=== PATIENT | male | born 1945 | race Caucasian/White ===

== ENCOUNTER 2024-03-30 16:33 | Emergency (ER) | payer OTHER ==
[2024-03-30 18:29] LABS: #Basophils 0.02 10x3/uL (0.0-0.2); #Eosinphils 0.52 10x3/uL (0.0-0.5); #Monocytes 0.85 10x3/uL (0.0-1.1); #Neutrophils 11.49 10x3/uL (1.5-8.4); %Basophils 0.1 % (0.0-2.0); %Eosinophils 3.6 % (0.0-6.0); %Monocytes 5.9 % (0.0-10.0); %Neutrophils 79.1 % (40.0-75.0); Hematocrit 31.2 % (38.8-50.0); Hemoglobin 10.4 g/dL (13.5-17.5); Mean Corpuscular HGB CONC 33.3 g/dL (32.0-36.0); Mean Corpuscular Hemoglobin 26.3 pg (27.0-33.0); Mean Corpuscular Volume 78.8 fL (81.2-95.1); Mean Platelet Volume 9.6 fL (7.4-10.4); PTT 23.4 sec (22.0-33.0); Platelet Count 346 10x3/uL (150-450); Prothrombin Time 10.8 sec (9.5-12.1); RBC Distribution Width 14.5 % (11.5-14.5); Red Blood Cell (RBC) Count 3.96 10x6/uL (4.32-5.72); White Blood Cell (WBC) Count 14.5 10x3/uL (3.5-10.5)
[2024-03-30 18:32] LABS: ALT (SGPT) 19 U/L (8-55); AST (SGOT) 21 U/L (5-34); Albumin 3.3 g/dL (3.4-4.8); Alkaline Phosphatase 81 U/L (40-110); Anion Gap 12 mmol/L (10-20); BUN (Urea Nitrogen) 12 mg/dL (8.4-25.7); Bilirubin, Total 0.4 mg/dL (0.2-1.2); Calc. Creatinine Clearance 0 mL/min (70-130); Calcium 8.2 mg/dL (7.8-10.44); Carbon Dioxide 21 mmol/L (23-31); Chloride 113 mmol/L (98-107); Estimated GFR 78; Globulin 2.4 g/dL (2.4-3.5); Glucose 99 mg/dL (83-110); Potassium 4.6 mmol/L (3.5-5.1); Protein, Total 5.7 g/dL (5.8-8.1); Sodium 141 mmol/L (136-145)
[2024-03-30 18:37] LABS: Troponin I 0.011 ng/mL (< 0.028)
== END 2024-03-30 18:55 ==
LOC: EEVIPCON 16:33 → CSHERS 16:33
DX: K92.2 Gastrointestinal hemorrhage, unspecified (principal); R07.9 Chest pain, unspecified
CPT/HCPCS: 36415; 80053; 82274; 83605; 84484; 85025; 85610; 85730; 86850; 86900; 86901; 93005

== ENCOUNTER 2024-04-11 19:55 | Emergency (ER) | payer OTHER ==
[~2024-04-11 19:55] MED LIST: Iopamidol 300 61% 100 ML VIAL FS ONE
[2024-04-11] MEDS ORDERED: Ondansetron PF 4 MG/2 ML Vial ONE ×2 (20:27→22:34)
[2024-04-11] MEDS ORDERED: Morphine 2 MG/ML VIAL ONE (20:28)
[2024-04-11 20:37] LABS: #Basophils 0.02 10x3/uL (0.0-0.2); #Eosinphils 0.12 10x3/uL (0.0-0.5); #Monocytes 0.95 10x3/uL (0.0-1.1); #Neutrophils 10.73 10x3/uL (1.5-8.4); %Basophils 0.2 % (0.0-2.0); %Eosinophils 0.9 % (0.0-6.0); %Monocytes 7.3 % (0.0-10.0); %Neutrophils 82.3 % (40.0-75.0); Hematocrit 30.4 % (38.8-50.0); Hemoglobin 10.2 g/dL (13.5-17.5); Mean Corpuscular HGB CONC 33.6 g/dL (32.0-36.0); Mean Corpuscular Hemoglobin 25.9 pg (27.0-33.0); Mean Corpuscular Volume 77.2 fL (81.2-95.1); Mean Platelet Volume 9.4 fL (7.4-10.4); Platelet Count 373 10x3/uL (150-450); RBC Distribution Width 15.7 % (11.5-14.5); Red Blood Cell (RBC) Count 3.94 10x6/uL (4.32-5.72)
[2024-04-11 21:06] LABS: ALT (SGPT) 27 U/L (8-55); AST (SGOT) 21 U/L (5-34); Albumin 3.9 g/dL (3.4-4.8); Alkaline Phosphatase 85 U/L (40-110); Anion Gap 15 mmol/L (10-20); BUN (Urea Nitrogen) 13 mg/dL (8.4-25.7); Bilirubin, Total 0.3 mg/dL (0.2-1.2); Calc. Creatinine Clearance 0 mL/min (70-130); Carbon Dioxide 20 mmol/L (23-31); Chloride 108 mmol/L (98-107); Estimated GFR 76; Globulin 3.1 g/dL (2.4-3.5); Glucose 116 mg/dL (83-110); Lipase 27 U/L (8-78); Potassium 3.7 mmol/L (3.5-5.1); Sodium 139 mmol/L (136-145)
[2024-04-11 21:12] LABS: Troponin I Less than 0.010 ng/mL (< 0.028)
[2024-04-11 22:25] LABS: Bilirubin Neg (Negative); Blood, Urine Negative (Negative); Clarity Clear (Clear); Glucose, Urine (Dipstick) Normal (Negative); Ketone, Urine Negative (Negative); Leukocyte Negative (Negative); Nitrite Negative (Negative); Protein, Urine (Dipstick) 15 mg/dl (Neg-Trace); Urobilinogen Normal mg/dL (Less than 2)
[2024-04-11 22:32] LABS: Bacteria/HPF None Seen HPF (None Seen); CAUTI Indications for Culture Pelvic or flank pain; RBC/HPF None Seen HPF (0-3); Squamous Epithelial None Seen HPF (0-3); WBC/HPF None Seen HPF (0-3)
[2024-04-11 22:34] LABS: Urine Culture Reflex No No
== END 2024-04-11 23:11 ==
LOC: CSHERS 19:55 → EEVIPCON 19:55 → CSHERS 23:11
DX: K44.9 Diaphragmatic hernia without obstruction or gangrene (principal); R11.2 Nausea with vomiting, unspecified; I10 Essential (primary) hypertension; J44.9 Chronic obstructive pulmonary disease, unspecified; Z79.899 Other long term (current) drug therapy
CPT/HCPCS: 74177; 80053; 81001; 82274; 83605; 83690; 84484; 85025; 93005; 96361; 96374; 96375; 96376; J2272; J2405; Q9967

== ENCOUNTER 2024-10-10 19:05 | Emergency (ER) | payer OTHER ==
[2024-10-10] MEDS ORDERED: Lidocaine Viscous Sol 2% 15 ml UD Cup ONE (20:42)
[2024-10-10] MEDS ORDERED: Pantoprazole 40 MG VIAL ONE (20:42)
[2024-10-10] MEDS ORDERED: Mag-Al 1200 mg/1200 mg/30 ML UDCUP ONE (20:42)
[2024-10-10] MEDS ORDERED: Sucralfate 1 GM/10 ML UDCUP ONE (20:42)
[2024-10-10 22:05] LABS: #Basophils 0.02 10x3/uL (0.0-0.2); #Eosinophils 0.27 10x3/uL (0.0-0.5); #Neutrophils 4.11 10x3/uL (1.5-8.4); %Basophils 0.3 % (0.0-2.0); %Eosinophils 3.7 % (0.0-6.0); %Lymphocytes 26.8 % (18.0-47.0); %Monocytes 12.4 % (0.0-10.0); %Neutrophils 56.5 % (40.0-75.0); Hematocrit 29.9 % (38.8-50.0); Hemoglobin 9.1 g/dL (13.5-17.5); Mean Corpuscular HGB CONC 30.4 g/dL (32.0-36.0); Mean Corpuscular Hemoglobin 21.6 pg (27.0-33.0); Mean Corpuscular Volume 70.9 fL (81.2-95.1); RBC Distribution Width 15.9 % (11.5-14.5); Red Blood Cell (RBC) Count 4.22 10x6/uL (4.32-5.72); White Blood Cell (WBC) Count 7.3 10x3/uL (3.5-10.5)
[2024-10-10 22:10] LABS: ALT (SGPT) 9 U/L (8-55); AST (SGOT) 12 U/L (5-34); Albumin 3.3 g/dL (3.4-4.8); Alkaline Phosphatase 58 U/L (40-110); Anion Gap 13 mmol/L (10-20); BUN (Urea Nitrogen) 11 mg/dL (8.4-25.7); Bilirubin, Total 0.2 mg/dL (0.2-1.2); Calc. Creatinine Clearance 0 mL/min (70-130); Calcium 8.7 mg/dL (7.8-10.44); Carbon Dioxide 21 mmol/L (23-31); Chloride 109 mmol/L (98-107); Estimated GFR 80; Globulin 2.9 g/dL (2.4-3.5); Glucose 95 mg/dL (83-110); Lipase 25 U/L (8-78); Potassium 4.3 mmol/L (3.5-5.1); Protein, Total 6.2 g/dL (5.8-8.1); Sodium 139 mmol/L (136-145)
[2024-10-10 22:12] LABS: Troponin I Less than 0.010 ng/mL (< 0.028)
[2024-10-10 22:27] LABS: Mean Platelet Volume 9.3 fL (7.4-10.4); Platelet Count 91 10x3/uL (150-450)
[2024-10-10 22:34] LABS: Platelet Adequacy Comment Appears Adequate; Platelet Clumps SLIGHT
[2024-10-10 22:35] LABS: Hypochromia SLIGHT = 6-15 cells (100X) (0-5/hpf); Microcytosis SLIGHT = 6-15 cells (100X) (0-5/hpf); Ovalocytes SLIGHT = 2-5 cells (100X) (0-1/hpf)
== END 2024-10-11 00:14 ==
LOC: EEVIPCON 19:05 → CSHERS 19:05
DX: K21.9 Gastro-esophageal reflux disease without esophagitis (principal); I10 Essential (primary) hypertension; J44.9 Chronic obstructive pulmonary disease, unspecified; Z79.899 Other long term (current) drug therapy
CPT/HCPCS: 36415; 80053; 83690; 84484; 85025; 93005; 96374; J2470